=== PATIENT | female | born 1960 | race Asian ===

== ENCOUNTER 2016-07-31 07:39 | Emergency (ER) | payer OTHER ==
[~2016-07-31] VITALS: Ht 165.1 cm; Wt 101.4 kg
[2016-07-31] MEDS ORDERED: ASPI-1093 PO (07:46)
[2016-07-31] MEDS ORDERED: SIMV-261 PO (07:46)
[2016-07-31] MEDS ORDERED: METF500T4 PO (07:46)
[2016-07-31] MEDS ORDERED: LISI-662 PO (07:46)
[2016-07-31 07:51] LABS: GLUCOSE,POINT OF CARE 158 MG/DL (70-110)
[2016-07-31 08:16] VITALS: BP 133/82
== END 2016-07-31 09:01 | disposition home or self-care (01) ==
LOC: EMS 07:40
DX: J40 Bronchitis, not specified as acute or chronic (principal); E11.9 Type 2 diabetes mellitus without complications; I10 Essential (primary) hypertension; E78.00 Pure hypercholesterolemia, unspecified
CPT/HCPCS: 82962; 99283